=== PATIENT | male | born 1970 | race Caucasian/White ===

== ENCOUNTER 2018-04-11 22:23 | Emergency (ER) | payer OTHER ==
[~2018-04-11] VITALS: Ht 182.9 cm; Wt 82.0 kg
[~2018-04-11 22:23] MED LIST: CLEOCIN300 MG PO; ULTRAM50 M1 PO
[2018-04-11 23:59] LABS: HEMOGLOBIN 12.3 g/dl (14.0-18.0); IMMATURE GRANULOCYTES 0.4 % (0.0-1.0); MEAN CELL VOLUME 91.1 fL CALC (80.0-100.0); MEAN CORPUSCULAR HGB 31.1 pG CALC (26.0-32.0); MEAN CORPUSCULAR HGB CONC 34.2 g/L CALC (32.0-36.0); NEUT# 11.26 thou/uL (1.82-7.42); RED BLOOD COUNT 3.95 mill/uL (4.70-6.10)
[2018-04-12 00:27] LABS: ALBUMIN 4.1 g/dL (3.2-5.0); ALKALINE PHOSPHATASE 103 u/l (38-126); ANION GAP 15 (6-22 (CALC)); BILIRUBIN, TOTAL 0.4 mg/dL (0.0-1.4); BUN 15 mg/dL (9-20); BUN/CREATININE RATIO 17 (12-20 (CALC)); CARBON DIOXIDE 28 mmol/l (22-30); CHLORIDE 101 mmol/l (95-108); CREATININE 0.9 mg/dL (0.7-1.3); GFR > 60 ML/MIN (>=60 (CALC)); GFR FOR AFR.AMER. > 60 ML/MIN (>=60 (CALC)); POTASSIUM 4.5 mmol/l (3.5-5.1); SGOT/AST 14 u/l (17-59); SGPT/ALT 22 u/l (21-72); SODIUM 140 mmol/l (137-146); TOTAL PROTEIN 7.3 g/dL (6.3-8.2)
[2018-04-12 01:22] LABS: URINE BILIRUBIN - DIPSTICK NEGATIVE (NEGATIVE); URINE BLOOD DIPSTICK NEGATIVE (NEGATIVE); URINE COLOR YELLOW; URINE GLUCOSE - DIPSTICK NEGATIVE (NEGATIVE); URINE KETONE NEGATIVE (NEGATIVE); URINE LEUK ESTERASE NEGATIVE (NEGATIVE); URINE NITRITE - DIPSTICK NEGATIVE (Negative); URINE PROTEIN - DIPSTICK TRACE mg/dL (NEG-TRACE); URINE SPECIFIC GRAVITY 1.015; URINE UROBILINOGEN - DIPSTICK 0.2 E.U./dL (0.2)
[2018-04-12 01:43] LABS: URINE CLARITY CLEAR
[2018-04-12] MEDS ORDERED: MOTRIN800 MG PO (02:10)
[2018-04-12 02:25] VITALS: BP 155/83
== END 2018-04-12 02:25 | disposition home or self-care (01) ==
LOC: ED 22:23
PROVIDERS: Emergency Medicine
DX: M79.671 Pain in right foot (principal); R22.41 Localized swelling, mass and lump, right lower limb; M19.071 Primary osteoarthritis, right ankle and foot

== ENCOUNTER 2018-07-14 11:10 | Emergency (ER) | payer OTHER ==
[~2018-07-14] VITALS: Ht 182.9 cm; Wt 100.0 kg
[~2018-07-14 11:10] MED LIST changes: +MOTRIN800 MG PO
[2018-07-14 11:46] LABS: HEMATOCRIT 34.3 % (39.0-50.0); HEMOGLOBIN 11.8 g/dl (14.0-18.0); IMMATURE GRANULOCYTES 0.4 % (0.0-5.0); MEAN CELL VOLUME 91.5 fL CALC (80.0-100.0); MEAN CORPUSCULAR HGB 31.5 pG CALC (26.0-32.0); MEAN CORPUSCULAR HGB CONC 34.4 g/L CALC (32.0-36.0); NEUT# 9.22 thou/uL (1.82-7.42); RED BLOOD COUNT 3.75 mill/uL (4.70-6.10); RED CELL DISTRI WIDTH 12.8 % (11.5-15.5)
[2018-07-14 12:18] LABS: ALBUMIN 3.7 g/dL (3.2-5.0); ALKALINE PHOSPHATASE 105 u/l (38-126); ANION GAP 15 (6-22 (CALC)); BILIRUBIN, TOTAL 0.3 mg/dL (0.0-1.4); BUN 17 mg/dL (9-20); BUN/CREATININE RATIO 23 (12-20 (CALC)); C-REACTIVE PROTEIN 3.9 mg/dL (0-0.9); CARBON DIOXIDE 25 mmol/l (22-30); CHLORIDE 104 mmol/l (95-108); CREATININE 0.7 mg/dL (0.7-1.3); GFR > 60 ML/MIN (>=60 (CALC)); GFR FOR AFR.AMER. > 60 ML/MIN (>=60 (CALC)); POTASSIUM 4.4 mmol/l (3.5-5.1); SGOT/AST 15 u/l (17-59); SODIUM 139 mmol/l (137-146); TOTAL PROTEIN 6.5 g/dL (6.3-8.2)
[2018-07-14] MEDS ORDERED: NAPROSYN500 MG PO (13:08)
[2018-07-14 13:34] VITALS: BP 158/85
== END 2018-07-14 13:33 | disposition home or self-care (01) ==
LOC: ED 11:10
PROVIDERS: Emergency Medicine
DX: M79.604 Pain in right leg (principal); Z91.19 Patient's noncompliance with other medical treatment and regimen

== ENCOUNTER 2019-09-27 05:17 | Observation (INO) | payer OTHER ==
[~2019-09-27] VITALS: Ht 182.9 cm; Wt 89.4 kg
[~2019-09-27 05:17] MED LIST changes: +NAPROSYN500 MG PO
[2019-09-27 06:17] LABS: HEMATOCRIT 37.4 % (39.0-50.0); HEMOGLOBIN 12.6 g/dl (14.0-18.0); IMMATURE GRANULOCYTES 0.3 % (0.0-5.0); MEAN CORPUSCULAR HGB CONC 33.7 g/L CALC (32.0-36.0); NEUT# 8.13 thou/uL (1.82-7.42); RED BLOOD COUNT 4.2 mill/uL (4.70-6.10); RED CELL DISTRI WIDTH 12.7 % (11.5-15.5)
[2019-09-27 06:19] LABS: ALBUMIN 3.9 g/dL (3.2-5.0); ALKALINE PHOSPHATASE 118 u/l (38-126); ANION GAP 14 (6-22 (CALC)); BILIRUBIN, TOTAL 0.3 mg/dL (0.0-1.4); BUN 23 mg/dL (9-20); BUN/CREATININE RATIO 26 (12-20 (CALC)); CARBON DIOXIDE 23 mmol/l (22-30); CHLORIDE 102 mmol/l (95-108); CREATININE 0.9 mg/dL (0.7-1.3); GFR > 60 ML/MIN (>=60 (CALC)); GFR FOR AFR.AMER. > 60 ML/MIN (>=60 (CALC)); SGOT/AST 21 u/l (17-59); SODIUM 135 mmol/l (137-146); TOTAL PROTEIN 7.3 g/dL (6.3-8.2)
[2019-09-27 09:30] VITALS: BP 189/116
[2019-09-27 14:40] VITALS: BP 149/85
[2019-09-27 18:23] VITALS: BP 137/73
[2019-09-28 04:00] VITALS: BP 143/72
[2019-09-28 05:49] LABS: HEMATOCRIT 35.7 % (39.0-50.0); HEMOGLOBIN 12.2 g/dl (14.0-18.0); IMMATURE GRANULOCYTES 0.7 % (0.0-5.0); MEAN CORPUSCULAR HGB 30.4 pG CALC (26.0-32.0); MEAN CORPUSCULAR HGB CONC 34.2 g/L CALC (32.0-36.0); NEUT# 21.21 thou/uL (1.82-7.42); RED BLOOD COUNT 4.01 mill/uL (4.70-6.10); RED CELL DISTRI WIDTH 12.7 % (11.5-15.5)
[2019-09-28 05:57] LABS: ALBUMIN 3.7 g/dL (3.2-5.0); ALKALINE PHOSPHATASE 97 u/l (38-126); ANION GAP 14 (6-22 (CALC)); BILIRUBIN, TOTAL 0.2 mg/dL (0.0-1.4); BUN 22 mg/dL (9-20); BUN/CREATININE RATIO 25 (12-20 (CALC)); CARBON DIOXIDE 20 mmol/l (22-30); CHLORIDE 106 mmol/l (95-108); CREATININE 0.9 mg/dL (0.7-1.3); GFR > 60 ML/MIN (>=60 (CALC)); GFR FOR AFR.AMER. > 60 ML/MIN (>=60 (CALC)); POTASSIUM 4.3 mmol/l (3.5-5.1); SGOT/AST 15 u/l (17-59); SODIUM 136 mmol/l (137-146); TOTAL PROTEIN 6.8 g/dL (6.3-8.2)
[2019-09-28 07:51] VITALS: BP 145/83
[2019-09-28 15:32] VITALS: BP 150/84
[2019-09-28 18:55] VITALS: BP 158/76
[2019-09-29 04:00] VITALS: BP 179/91
[2019-09-29 06:08] LABS: HEMATOCRIT 35.1 % (39.0-50.0); HEMOGLOBIN 11.6 g/dl (14.0-18.0); IMMATURE GRANULOCYTES 0.9 % (0.0-5.0); MEAN CELL VOLUME 90.7 fL CALC (80.0-100.0); NEUT# 19.71 thou/uL (1.82-7.42); RED BLOOD COUNT 3.87 mill/uL (4.70-6.10); RED CELL DISTRI WIDTH 13.2 % (11.5-15.5)
[2019-09-29 06:19] LABS: ANION GAP 13 (6-22 (CALC)); BUN 17 mg/dL (9-20); BUN/CREATININE RATIO 23 (12-20 (CALC)); CARBON DIOXIDE 20 mmol/l (22-30); CHLORIDE 109 mmol/l (95-108); CREATININE 0.8 mg/dL (0.7-1.3); GFR > 60 ML/MIN (>=60 (CALC)); GFR FOR AFR.AMER. > 60 ML/MIN (>=60 (CALC)); MAGNESIUM 1.6 mg/dL (1.6-2.3); POTASSIUM 4.1 mmol/l (3.5-5.1); SODIUM 138 mmol/l (137-146)
[2019-09-29 09:10] VITALS: BP 135/81
[2019-09-29] MEDS ORDERED: BACTRIM DS1 TAB PO (11:36)
[2019-09-29] MEDS ORDERED: MEDDOSEPAK PO (11:37)
== END 2019-09-29 16:50 | disposition home or self-care (01) ==
LOC: ED 05:17 → ED-I 07:01 → ED 07:16 → MS2 07:17
PROVIDERS: Emergency Medicine; Nurse Practitioner Family; ADMIT Internal Medicine; ATTEND Internal Medicine
DX: L03.113 Cellulitis of right upper limb (principal); I16.0 Hypertensive urgency; I10 Essential (primary) hypertension; E78.5 Hyperlipidemia, unspecified; F17.210 Nicotine dependence, cigarettes, uncomplicated; M10.9 Gout, unspecified; T50.916A Underdosing of multiple unspecified drugs, medicaments and biological substances, initial encounter; F15.10 Other stimulant abuse, uncomplicated; Z91.120 Patient's intentional underdosing of medication regimen due to financial hardship
CPT/HCPCS: G0378; J1650; J3370

== ENCOUNTER 2019-10-02 | Emergency (ER) | payer OTHER ==
[~2019-10-02] MED LIST changes: +BACTRIM DS1 TAB PO; +MEDDOSEPAK PO
[2019-10-02] MEDS ORDERED: TRAMADOL HYDROC50 MG PO (16:17)
== END 2019-10-02 17:16 | disposition home or self-care (01) ==
DX: S63.501A Unspecified sprain of right wrist, initial encounter (principal); I10 Essential (primary) hypertension; X58.XXXA Exposure to other specified factors, initial encounter

== ENCOUNTER 2020-01-21 | Emergency (ER) | payer OTHER ==
[~2020-01-21] MED LIST changes: +TRAMADOL HYDROC50 MG PO
[2020-01-21 09:37] LABS: IMMATURE GRANULOCYTES 0.8 % (0.0-5.0); MEAN CELL VOLUME 92.5 fL CALC (80.0-100.0); MEAN CORPUSCULAR HGB 29.9 pG CALC (26.0-32.0); MEAN CORPUSCULAR HGB CONC 32.3 g/dL CAL (32.0-36.0); NEUT# 4.31 thou/uL (1.82-7.42); RED BLOOD COUNT 4.92 mill/uL (4.70-6.10)
[2020-01-21 09:38] LABS: HEMATOCRIT 45.5 % (39.0-50.0); HEMOGLOBIN 14.7 g/dl (14.0-18.0)
[2020-01-21 09:52] LABS: ALBUMIN 3.8 g/dL (3.2-5.0); ALKALINE PHOSPHATASE 107 u/l (38-126); ANION GAP 17 (6-22 (CALC)); BUN 16 mg/dL (9-20); BUN/CREATININE RATIO 17 (12-20 (CALC)); CARBON DIOXIDE 23 mmol/l (22-30); CHLORIDE 102 mmol/l (95-108); CREATININE 0.9 mg/dL (0.7-1.3); GFR > 60 ML/MIN (>=60 (CALC)); GFR FOR AFR.AMER. > 60 ML/MIN (>=60 (CALC)); POTASSIUM 4.4 mmol/l (3.5-5.1); SGOT/AST 23 u/l (17-59); SODIUM 137 mmol/l (137-146)
[2020-01-21 09:57] LABS: BILIRUBIN, TOTAL 0.6 mg/dL (0.0-1.4)
[2020-01-21] MEDS ORDERED: INDOCIN25 MG PO (10:05)
[2020-01-21] MEDS ORDERED: FLEXERIL PO (10:05)
[2020-01-21] MEDS ORDERED: BACTRIM DS1 TAB PO (10:06)
== END 2020-01-21 10:26 | disposition home or self-care (01) ==
PROVIDERS: Emergency Medicine
DX: M10.072 Idiopathic gout, left ankle and foot (principal); M10.071 Idiopathic gout, right ankle and foot; L08.9 Local infection of the skin and subcutaneous tissue, unspecified; F19.10 Other psychoactive substance abuse, uncomplicated; I10 Essential (primary) hypertension

== ENCOUNTER 2020-11-01 17:24 | Emergency (ER) | payer OTHER ==
[~2020-11-01] VITALS: Ht 182.9 cm; Wt 106.8 kg
[~2020-11-01 17:24] MED LIST changes: +FLEXERIL PO; +INDOCIN25 MG PO
[2020-11-01 19:46] VITALS: BP 153/89
[2020-11-01] MEDS ORDERED: NAPROXEN375 MG PO (19:51)
== END 2020-11-01 20:10 | disposition home or self-care (01) ==
LOC: ED 17:24
DX: M25.552 Pain in left hip (principal); M54.5 Low back pain; I10 Essential (primary) hypertension; M10.9 Gout, unspecified; F17.210 Nicotine dependence, cigarettes, uncomplicated; W01.0XXA Fall on same level from slipping, tripping and stumbling without subsequent striking against object, initial encounter; Y93.H2 Activity, gardening and landscaping; Y92.007 Garden or yard of unspecified non-institutional (private) residence as the place of occurrence of the external cause; E78.00 Pure hypercholesterolemia, unspecified

== ENCOUNTER 2020-11-05 12:01 | Emergency (ER) | payer OTHER ==
[~2020-11-05] VITALS: Ht 182.9 cm; Wt 110.0 kg
[~2020-11-05 12:01] MED LIST changes: +NAPROXEN375 MG PO
[2020-11-05 14:30] LABS: HEMATOCRIT 36.8 % (39.0-50.0); HEMOGLOBIN 12.4 g/dl (14.0-18.0); IMMATURE GRANULOCYTES 1.1 % (0.0-5.0); MEAN CELL VOLUME 89.5 fL CALC (80.0-100.0); MEAN CORPUSCULAR HGB 30.2 pG CALC (26.0-32.0); MEAN CORPUSCULAR HGB CONC 33.7 g/dL CAL (32.0-36.0); NEUT# 8.85 thou/uL (1.82-7.42); RED BLOOD COUNT 4.11 mill/uL (4.70-6.10); RED CELL DISTRI WIDTH 13.2 % (11.5-15.5)
[2020-11-05 14:37] LABS: ALBUMIN 3.1 g/dL (3.2-5.0); ALKALINE PHOSPHATASE 109 u/l (38-126); ANION GAP 16 (6-22 (CALC)); BILIRUBIN, TOTAL 0.8 mg/dL (0.0-1.4); BUN 21 mg/dL (9-20); BUN/CREATININE RATIO 18 (12-20 (CALC)); CARBON DIOXIDE 19 mmol/l (22-30); CHLORIDE 97 mmol/l (95-108); CREATININE 1.2 mg/dL (0.7-1.3); GFR > 60 ML/MIN (>=60 (CALC)); GFR FOR AFR.AMER. > 60 ML/MIN (>=60 (CALC)); POTASSIUM 4.5 mmol/l (3.5-5.1); SGOT/AST 38 u/l (17-59); TOTAL PROTEIN 6.1 g/dL (6.3-8.2)
[2020-11-05 14:39] LABS: SODIUM 127 mmol/l (137-146)
[2020-11-05] MEDS ORDERED: TRAMADOL HYDROC50 MG PO (15:07)
[2020-11-05] MEDS ORDERED: CLINDAMYCIN300 M1 PO (15:07)
[2020-11-05 15:55] VITALS: BP 113/69
== END 2020-11-05 17:25 | disposition home or self-care (01) ==
LOC: ED 12:01
DX: L03.116 Cellulitis of left lower limb (principal); S70.02XD Contusion of left hip, subsequent encounter; E87.1 Hypo-osmolality and hyponatremia; I10 Essential (primary) hypertension; M10.9 Gout, unspecified; E78.00 Pure hypercholesterolemia, unspecified; F17.200 Nicotine dependence, unspecified, uncomplicated; W01.0XXD Fall on same level from slipping, tripping and stumbling without subsequent striking against object, subsequent encounter

== ENCOUNTER 2023-01-04 14:51 | Emergency (ER) | payer OTHER ==
[~2023-01-04] VITALS: Ht 182.9 cm; Wt 90.7 kg
[~2023-01-04 14:51] MED LIST changes: +CLINDAMYCIN300 M1 PO
[2023-01-04 15:24] VITALS: BP 155/102
[2023-01-04 15:26] VITALS: BP 158/101
[2023-01-04 15:30] VITALS: BP 154/98
[2023-01-04 15:45] VITALS: BP 164/96
[2023-01-04] MEDS ORDERED: NAPROXEN500 MG PO (17:04)
[2023-01-04 17:08] VITALS: BP 148/93
[2023-01-04 17:10] VITALS: BP 148/93
== END 2023-01-04 17:18 | disposition home or self-care (01) ==
LOC: ED 14:51
DX: M25.561 Pain in right knee (principal); I10 Essential (primary) hypertension; E78.00 Pure hypercholesterolemia, unspecified; M10.9 Gout, unspecified; F17.210 Nicotine dependence, cigarettes, uncomplicated

== ENCOUNTER 2024-11-09 20:20 | Emergency (ER) | payer SELFPAY ==
[~2024-11-09] VITALS: Ht 182.9 cm; Wt 90.0 kg
[~2024-11-09 20:20] MED LIST changes: +NAPROXEN500 MG PO
[2024-11-09 20:41] VITALS: BP 158/105
[2024-11-09] MEDS ORDERED: KETOROLAC TROMETHAMINE 30 MG/ML SDV IM ONE (20:45)
[2024-11-09 21:00] VITALS: BP 145/92
[2024-11-09 21:15] VITALS: BP 151/93
[2024-11-09 21:32] VITALS: BP 151/93
== END 2024-11-09 21:37 | disposition home or self-care (01) | DRG 605 ==
LOC: ED 20:20
DX: S70.12XA Contusion of left thigh, initial encounter (principal); S50.312A Abrasion of left elbow, initial encounter; S20.312A Abrasion of left front wall of thorax, initial encounter; I10 Essential (primary) hypertension; E78.00 Pure hypercholesterolemia, unspecified; F17.210 Nicotine dependence, cigarettes, uncomplicated; F17.290 Nicotine dependence, other tobacco product, uncomplicated; W22.09XA Striking against other stationary object, initial encounter; Y93.55 Activity, bike riding; Y92.838 Other recreation area as the place of occurrence of the external cause

== ENCOUNTER 2024-11-20 10:48 | Emergency (ER) | payer SELFPAY ==
[~2024-11-20] VITALS: Ht 182.9 cm; Wt 90.0 kg
[2024-11-20 11:30] VITALS: BP 187/96
[2024-11-20] MEDS ORDERED: IBUPROFEN 800 MG/TAB PO ONE (11:30)
[2024-11-20 11:45] VITALS: BP 195/96
[2024-11-20 12:00] VITALS: BP 199/114
[2024-11-20] MEDS ORDERED: MOTRIN800 MG PO (13:15)
[2024-11-20 13:20] VITALS: BP 199/114
== END 2024-11-20 13:21 | disposition home or self-care (01) | DRG 563 ==
LOC: ED 10:48
DX: S93.401A Sprain of unspecified ligament of right ankle, initial encounter (principal); I10 Essential (primary) hypertension; E78.00 Pure hypercholesterolemia, unspecified; F17.200 Nicotine dependence, unspecified, uncomplicated; X50.0XXA Overexertion from strenuous movement or load, initial encounter

== ENCOUNTER 2024-11-22 10:24 | Emergency (ER) | payer SELFPAY ==
[~2024-11-22] VITALS: Ht 182.9 cm; Wt 90.0 kg
[2024-11-22] VITALS (10 sets, daily range): BP systolic 130–153; BP diastolic 78–93
[2024-11-22] MEDS ORDERED: ONDANSETRON 4 MG/TAB ODT PO ONE (11:15)
[2024-11-22] MEDS ORDERED: HYDROmorphone HCL 2 MG/AMP IM ONE (11:15)
[2024-11-22] MEDS ORDERED: DOXYCYCLINE HYCLATE 100 MG/CAP PO ONE (11:15)
[2024-11-22] MEDS ORDERED: DEXAMETHASON6 MG PO (11:22)
[2024-11-22] MEDS ORDERED: DOXYCYCL HYC100 M4 PO (11:22)
[2024-11-22] MEDS ORDERED: HYDROCO/APAP1 T10 PO (12:16)
== END 2024-11-22 12:31 | disposition home or self-care (01) | DRG 554 ==
LOC: ED 10:24
DX: M10.072 Idiopathic gout, left ankle and foot (principal); M10.071 Idiopathic gout, right ankle and foot; I10 Essential (primary) hypertension; E78.00 Pure hypercholesterolemia, unspecified; F17.200 Nicotine dependence, unspecified, uncomplicated
CPT/HCPCS: J1171